=== PATIENT | female | born 1985 | race Caucasian/White ===

== ENCOUNTER 2016-12-10 15:13 | Emergency (ER) | payer OTHER ==
[~2016-12-10 15:13] MED LIST: AUGMENTIN PO; BACLOFEN10 MG PO; BACTRIM DS TABL1 TA1 PO; BACTRIM DS TABL1 TAB PO; CIPRO XR 500 M500 MG PO; CLEOCIN HCL150 MG PO; CLINDAMYCIN HC300 MG PO; FLAGYL PO; IBUPROFEN PO; IBUPROFEN800 MG PO; KEFLEX PO; KEFLEX500 MG PO; NO MEDICATIONS; PERCOCET5/325 PO; PYRIDIUM100 MG PO; TYLENOL #3 PO; TYLENOL325 M1 PO; ULTRAM PO; VICODIN 5/500 T1 TAB PO; ZITHROMAX PO; ZOFRAN ODT4 MG PO; ZOFRAN PO
== END 2016-12-10 15:51 | disposition left against medical advice (07) ==
LOC: CED 15:13
DX: Z53.21 Procedure and treatment not carried out due to patient leaving prior to being seen by health care provider (principal)

== ENCOUNTER 2017-03-12 12:48 | Emergency (ER) | payer OTHER ==
[~2017-03-12] VITALS: Ht 172.7 cm; Wt 65.8 kg
--- NOTE | ~2017-03-12 | CT2 ---
[facility] A Service of [facility] RADIOLOGY TEXT RESULTS PATIENT: DENY TATE LOCATION: [place] : 85 UNIT #: [id number] AGE: [address]: Cari Hanson SEX: F ORDER DR: [id number] [place] [id number] [facility]. [place], [place] [address] [id number] E MR#: [id number] Acc #: [id number] NAME: DENY TATE : 1985 SEX: F STUDY DATE/TIME: 03/12/2017 15:33 UNIT: [place] ROOM: STUDY DESCRIPTION: CT Abd and Pelv W Cont Attending Physician: Cari Hanson P.A.-C. Ordering Physician: Cari Hanson P.A.-C. [facility] RE[facility] This report is preliminary unless electronic signature is present EXAM CT abdomen and pelvis INDICATION Right-sided abdominal pain and pelvic pain. TECHNIQUE CT of the abdomen and pelvis with p.o. and IV contrast (100 mL Isovue-370 IV contrast). Coronal and sagittal reconstructions were obtained. This CT examination was performed with one or more of the following radiation dose reduction techniques: automatic exposure control, adjustment of mA and/or kV according to patient size, and iterative reconstruction. COMPARISON CT abdomen and pelvis 01/30/2009. FINDINGS ABDOMEN: The solid abdominal organs enhance normally. The gallbladder is not distended. The bowel is not dilated. The appendix is surgically absent. PELVIS: There is some free fluid in the pelvis. This is likely physiologic. There is some mild stranding within the pelvis near the adnexa. Correlate for any evidence of pelvic inflammatory disease. There is no discrete loculated fluid collections. Mild wall thickening of the sigmoid colon and rectum is noted. This could be reactive or due to a colitis. No acute osseous abnormalities. IMPRESSION 1. Very subtle and mild inflammation in the pelvis. Please correlate for [facility] A Service [facility] RADIOLOGY TEXT RESULTS PATIENT: DENY TATE LOCATION: [place] : 85 UNIT #: [id number] AGE: [address]: Cari Hanson SEX: F ORDER DR: any evidence of a pelvic inflammatory disease. Additionally, there is some mild wall thickening of the distal sigmoid colon and rectum. Therefore, this could be secondary to a colitis. 2. Small volume of free fluid is likely reactive to the above processes. Correlation with clinical symptoms is requested. Dictated by... David Bernard M.D. THIS IS AN ELECTRONICALLY VERIFIED REPORT David Bernard M.D. at 03/14/2017 10:28 AM TRINITY/addison TD: 03/13/2017 07:47 JOB #: [id number] MEDICAL IMAGING REPORT Page 1 of 1 COPY
[2017-03-12 14:26] LABS: BASOPHIL# 0.1 X10e3 (0-0.3); BASOPHIL% 0.6 % (0-2.5); EOSINOPHIL# 0.1 X10e3 (0-0.7); EOSINOPHIL% 0.7 % (0.0-7.0); HEMATOCRIT 42.5 % (35.0-45.0); HEMOGLOBIN 14.5 gm/dL (12.0-16.0); LYMPHOCYTE# 1.4 X10e3 (1.0-3.5); MEAN CELL VOLUME 90.2 FL (83-96); MEAN CORPUSCULAR HEMOGLOBIN 30.8 PG (28-34); MEAN CORPUSCULAR HGB CONC 34.1 g/dL (30-36); MEAN PLATELET VOLUME 8.4 FL (6.5-11.5); MONOCYTE# 0.3 X10e3 (0-1.0); MONOCYTE% 2.5 % (3.0-12.0); NEUTROPHIL# 8.3 X10e3 (1.5-7.1); NEUTROPHIL% 82.2 % (40-75); PLATELET COUNT 392 X10e3 (140-420); RED BLOOD COUNT 4.71 X10e (3.90-5.30); WHITE BLOOD COUNT 10.1 X10e3 (4.0-10.5)
[2017-03-12 14:33] LABS: DIFF IND NO
[2017-03-12 14:45] LABS: URINE SOURCE CLEAN CATCH
[2017-03-12 14:48] LABS: ALBUMIN SERUM 3.7 g/dL (3.5-5.0); BILIRUBIN, DIRECT 0.1 mg/dL (0.0-0.2); BILIRUBIN,INDIRECT 0.3 mg/dL (0.0-0.9); BILIRUBIN,TOTAL 0.4 mg/dL (0.2-2.0); BUN/CREATININE RATIO 8.57; CALCIUM SERUM 9.1 mg/dL (8.4-10.2); CREATININE SERUM 0.7 mg/dL (0.6-1.4); GLOM FILT RATE Estimated 115.5 mL/min (>60); POTASSIUM 3.9 mmol/L (3.5-5.1); PROTEIN TOTAL SERUM 7.9 g/dL (6.0-8.3)
[2017-03-12 14:50] LABS: URINE APPEARANCE CLEAR; URINE BILIRUBIN NEG (NEG); URINE BLOOD NEG (NEG); URINE COLOR DK YELLOW; URINE GLUCOSE NEG (NEG); URINE KETONE NEG (NEG); URINE LEUKOCYTE ESTERASE 2+ (NEG); URINE NITRATE NEG (NEG); URINE PROTEIN TRACE (NEG); URINE SPECIFIC GRAVITY 1.019 (1.003-1.035)
[2017-03-12 14:52] LABS: CULTURE INDICATED? YES; URBCS1 AUWI 0-2 /[HPF] (0-2); URINE BACTERIA AUWI 2+ (NEGATIVE); URINE SQUAMOUS EPITHELIAL CELL FEW /[HPF]; UWBCS1 AUWI 25-50 (0-5)
[2017-03-15 11:12] LABS: CHLAMYDIA TRACH Detected (Not Detected); N GONOR Detected (Not Detected)
== END 2017-03-12 16:58 | disposition home or self-care (01) ==
LOC: CFTX 12:48 → CED 12:48 → CFTX 13:41 → CED 16:58
PROVIDERS: Physician Assistant
DX: A59.03 Trichomonal cystitis and urethritis (principal); N73.9 Female pelvic inflammatory disease, unspecified; K52.9 Noninfective gastroenteritis and colitis, unspecified; J02.9 Acute pharyngitis, unspecified; F17.210 Nicotine dependence, cigarettes, uncomplicated; Z90.49 Acquired absence of other specified parts of digestive tract; Z98.890 Other specified postprocedural states
CPT/HCPCS: 36415; 74177; 80048; 80076; 81003; 82150; 83690; 84703; 85025; 87040; 87086; 87491; 87591; 87808; 87905; 96374; 99284; J0696; J1885; Q9967